=== PATIENT | female | born 1985 | race Caucasian/White ===

== ENCOUNTER 2016-05-12 13:14 | Emergency (ER) | payer OTHER ==
--- NOTE | 2016-05-12 20:44 | ED CLINICAL REPORT ---
Clinical Report - Physicians/Mid Levels [facility] [address] [place] [address] 05/12/2016 13:16 Patient: JUSTIN CALLAWAY Time Seen: 13:58. Arrived- By private vehicle. Historian- patient and family. HISTORY OF PRESENT ILLNESS Chief Complaint: DELUSIONAL, PARANOID and AUDITORY and VISUAL HALLUCINATIONS. This started about 3 years ago, but worse in recent months. The patient has experienced situational problems (Pt lives with her parents. She just lost her job after 9 years of employment there. Pt states she believes she contracted this issue from work.). She is non-compliant with medication (Pt was supposed to start meds after being evaluated 3 years ago, at which time mom advocated against inpatient treatment because mom was unemployed and did not have transportation; however, pt would not take the meds.). No recent drug use or alcohol consumption. Has been depressed and paranoid but eating and exhibited unusual behavior. Has not been sleeping. She has had anxiety, delusions and hallucinations. No anger, suicidal thoughts or self-injury inflicted. The symptoms are described as moderate. No injury is present. Similar symptoms previously: Recent medical care: Not recently seen/assessed. REVIEW OF SYSTEMS No headache, dizziness, weakness, chest pain or palpitations. No abdominal pain, vomiting, diarrhea, black stools or numbness. No fever, sore throat, cough, difficulty breathing or urinary frequency. No skin rash, enlarged lymph nodes, joint pain, weight loss or laceration. All systems otherwise negative, except as recorded above. PAST HISTORY Problems: Depression. Additional Surgeries: no known surgeries. Medications: None. Allergies: None. SOCIAL HISTORY Never smoker. No alcohol use or drug use. ADDITIONAL NOTES The nursing notes have been reviewed. PHYSICAL EXAM Vital Signs: 05/12/2016 13:38 BP: 155/104. HR: 89. RR: 20. O2 saturation: 100%. Pain level now: 0/10. Have been reviewed. Appearance: Alert. No acute distress. Is disheveled. (PT has a look of consternation, but is not overtly anxious.). Eyes: Pupils equal, round and reactive to light. Neck: Normal inspection. Neck supple. CVS: Normal heart rate and rhythm. Heart sounds normal. Respiratory: Breath sounds normal. Chest nontender. Abdomen: Soft and nontender. Back: No tenderness. Skin: Skin warm and dry. Normal skin color. Normal skin turgor. Extremities: Extremities exhibit normal ROM. No lower extremity edema. Psych / Neuro: Blunted affect. Speech normal. Appears to have auditory and visual hallucinations and delusions. The patient expresses phobias (PT states she sees part of her family on one thigh, and part on the other. If she eats certain foods, it will kill one side of the family, and if she eats other foods, it will kill the other. Pt states, "I don't know what I can eat, and I don't know what to do."). She does not appear to understand hers illness but appears concerned about hers current condition. Cranial nerves normal (as tested). No cerebellar findings. No motor deficit. No sensory deficit. LABS, X-RAYS, AND EKG Laboratory Tests: CBC w Diff: (RODRÍGUEZ: 05/12/2016 13:40) ( Transceptacvd 05/12/2016 14:14) Final results Test Result Flag Units (Reference) WHITE BLOOD COUNT 7.9 K/uL (4.5-11.5) RED BLOOD COUNT 4.02 M/uL (4.00-5.20) HEMOGLOBIN 12.0 gm/dL (12.0-16.0) HEMATOCRIT 35.8 L % (36.0-46.0) MEAN CELL VOLUME 89 fL (80-100) MEAN CORPUSCULAR HGB 30 pg (26-34) MEAN CORPUSCULAR HGB CONC 34 g/dL (31-37) RED CELL DISTRIBUTION WIDTH 13.2 % (11.6-14.8) PLATELET COUNT 352 K/uL (150-400) NEUTROPHIL % 73.7 % (50-75) LYMPH % 20.2 L % (25-40) MONO % 5.4 % (3-14) EOSINOPHIL % 0.2 % (0-4) BASOPHIL % 0.5 % (0-2) Urine Drug Screen: (RODRÍGUEZ: 05/12/2016 13:30) ( Mscvd 05/12/2016 14:19) Final results Test Result Flag Units (Reference) AMPHETAMINE/METHAMPHETAMINE NEGATIVE (NEGATIVE) BARBITURATE NEGATIVE (NEGATIVE) BENZODIAZEPINE NEGATIVE (NEGATIVE) CANNABINOID NEGATIVE (NEGATIVE) COCAINE NEGATIVE (NEGATIVE) ECSTASY NEGATIVE (NEGATIVE) METHADONE NEGATIVE (NEGATIVE) OPIATE NEGATIVE (NEGATIVE) The urine drug screen is a qualitative screening test fordrug overdose and abuse. All screen results should beconsidered as presumptive.Drugs screened for are as follows:BenzodiazepinesCocaineAmphetamines/MetamphetaminesTHC (Tetrahydrocannabinol)OpiatesBarbituratesEcstasyMethadonePositive results are unconfirmed. For confirmation, notifythe lab for the specimen to be sent to the reference lab.All confirmations must be performed by a differentmethodology.The ingestion of natural herbal and plant productscontaining Ephedra/Ephedra metabolites can produce in urineone or more substances capable of cross reacting withamphetamine/methamphetamine immunoassays. These testsprovide a preliminary result only. A more specificalternative chemical method must be used to obtain aconfirmed analytical result. CMP: (RODRÍGUEZ: 05/12/2016 13:40) ( MsgRcvd 05/12/2016 14:35) Final results Test Result Flag Units (Reference) GLUCOSE 96 mg/dL (70-110) BUN 11 mg/dL (7-18) CREATININE 0.7 mg/dL (0.6-1.3) Estimated GFR >60 mL/min Estimated GFR- >60 mL/min Note: Persistent reduction over 3 months in eGFR<60 mL/min/1.73 m2 defines CKD. Patients with eGFR values>=60 mL/min/1.73 m2 may also have CKD if evidence ofpersistent proteinuria. Additional information may be foundat www.kidney.org. SODIUM 138 mmol/L (136-145) POTASSIUM 3.5 mmol/L (3.5-5.1) CHLORIDE 103 mmol/L (98-107) CARBON DIOXIDE 24 mmol/L (21-32) CALCIUM 9.1 mg/dL (8.5-10.1) TOTAL PROTEIN 8.2 g/dL (6.4-8.2) ALBUMIN 4.4 g/dL (3.3-5.0) BILIRUBIN, TOTAL 0.5 mg/dL (0.0-1.0) ALKALINE PHOSPHATASE 69 U/L (46-116) AST (SGOT) 20 U/L (15-37) ALT (SGPT) 26 U/L (12-78) ETHYL ALCOHOL <3 L mg/dL (3-10) THYROID STIMULATING HORMONE 1.441 uIU/mL (0.34-3.74) . Pulse Oximetry: 05/12/2016 13:38 O2 saturation: 100%. (FIO2 - room air). Interpretation: normal. PROGRESS AND PROCEDURES Course of Care: Pt was worked up and evaluated by the mental health clinician. She was quite disabled, and it was felt that she should be treated as an inpatient. [place] did accept the pt in transfer. Patient and family counseled in person regarding the patient's serious condition, test results, diagnosis and need for transfer. Parental concerns were addressed. Old medical records reviewed. Disposition: Transferred to [facility]. Condition: stable and serious. CLINICAL IMPRESSION Chronic paranoid psychosis with delusions, hallucinations and paranoia, (with acute exacerbation). (Electronically signed by Antonia Worley MD 05/20/2016 5:51)
--- NOTE | 2016-05-12 20:44 | ED ORDER SUMMARY ---
..... Patient: JUSTIN CALLAWAY OrderSheet [facility] VisitID: [id number] [address] [place] [address] 30y, F Registration Date/Time: 05/12/2016 ORDER SHEET Weight: 68.0 kg (estimated) Allergies: None GENERAL ORDERS: Urine Drug Screen Urgent (13:58 05/12/2016 Tanvi ZIMMERMAN) (Ack 14:06 LNations ER Tech1) (14:07 LNations ER Tech1) Ethyl Alcohol Urgent (13:58 05/12/2016 Tanvi ZIMMERMAN) (Ack 14:06 LNations ER Tech1) (14:07 LNations ER Tech1) CBC w Diff Urgent (13:58 05/12/2016 Tanvi ZIMMERMAN) (Ack 14:06 LNations ER Tech1) (14:07 LNations ER Tech1) CMP Urgent (13:58 05/12/2016 Tanvi ZIMMERMAN) (Ack 14:06 LNations ER Tech1) (14:07 LNations ER Tech1) TSH Urgent (13:58 05/12/2016 Tanvi ZIMMERMAN) (Ack 14:06 LNations ER Tech1) (14:07 LNations ER Tech1) MEDICATION ORDERS: ZyPREXA Zydis ODT PO 5 mg (NOW) (19:20 05/12/2016 Tanvi ZIMMERMAN) (19:32 DBeyer R.N.) Ibuprofen PO 800 mg (NOW) (19:32 05/12/2016 Tanvi ZIMMERMAN) (Ack 20:09 MWinterer R.N.) (Cancelled: Patient Mdlpgyd70:06 MWinterer R.N.) Acetaminophen PO 650 mg (NOW) (19:32 05/12/2016 Tanvi ZIMMERMAN) (Ack 20:09 MWinterer R.N.) (Cancelled: Patient Wycdzfl08:07 MWinterer R.N.) IV FLUIDS: ORDER SHEET NOTES: [Electronically signed by Yahaira Menendez R.N. (17:47 05/19/2016)] [Electronically signed by Antonia Worley MD (05:51 05/20/2016)] [Electronically locked/signed by Yahaira Menendez R.N. (17:47 05/19/2016)]
--- NOTE | 2016-05-12 20:44 | ED ORDER SUMMARY ---
..... Patient: JUSTIN CALLAWAY OrderSheet [facility] VisitID: [id number] [address] [place] [address] 30y, F Registration Date/Time: 05/12/2016 ORDER SHEET Weight: 68.0 kg (estimated) Allergies: None GENERAL ORDERS: Urine Drug Screen Urgent (13:58 05/12/2016 Tanvi ZIMMERMAN) (Ack 14:06 LNations ER Tech1) (14:07 LNations ER Tech1) Ethyl Alcohol Urgent (13:58 05/12/2016 Tanvi ZIMMERMAN) (Ack 14:06 LNations ER Tech1) (14:07 LNations ER Tech1) CBC w Diff Urgent (13:58 05/12/2016 Tanvi ZIMMERMAN) (Ack 14:06 LNations ER Tech1) (14:07 LNations ER Tech1) CMP Urgent (13:58 05/12/2016 Tanvi ZIMMERMAN) (Ack 14:06 LNations ER Tech1) (14:07 LNations ER Tech1) TSH Urgent (13:58 05/12/2016 Tanvi ZIMMERMAN) (Ack 14:06 LNations ER Tech1) (14:07 LNations ER Tech1) MEDICATION ORDERS: ZyPREXA Zydis ODT PO 5 mg (NOW) (19:20 05/12/2016 Tanvi ZIMMERMAN) (19:32 DBeyer R.N.) Ibuprofen PO 800 mg (NOW) (19:32 05/12/2016 Tanvi ZIMMERMAN) (Ack 20:09 MWinterer R.N.) (Cancelled: Patient Uqnkjus18:06 MWinterer R.N.) Acetaminophen PO 650 mg (NOW) (19:32 05/12/2016 Tanvi ZIMMERMAN) (Ack 20:09 MWinterer R.N.) (Cancelled: Patient Avyqnvr71:07 MWinterer R.N.) IV FLUIDS: ORDER SHEET NOTES: [Electronically signed by Yahaira Menendez R.N. (17:47 05/19/2016)] [Electronically signed by Antonia Worley MD (05:51 05/20/2016)] [Electronically locked/signed by Yahaira Menendez R.N. (17:47 05/19/2016)]
--- NOTE | 2016-05-12 20:44 | ED NURSING NOTES ---
Clinical Report - Nurses [facility] [place] [address] [place] [address] 05/12/2016 13:16 Patient: JUSTIN CALLAWAY TRIAGE Acuity: LEVEL 3. Chief Complaint: HALLUCINATIONS and BIZARRE BEHAVIOR and CONFUSED. Alert. SEPSIS SCREEN: Sepsis Screen. Negative (no infection suspected/documented). XAVIER COMA SCORE: Xavier Coma Scale: 14- eyes open spontaneously (4); best verbal response- disoriented (4); best motor response- obeys commands (6). --13:53 Yahaira Menendez R.N. 13:38 05/12/16. BP: 155/104. HR: 89. RR: 20. O2 saturation: 100% on room air. Pain level now: 0/10. --13:53 Yahaira Menendez R.N. Weight: 68 kg estimated. Height/Length: 70 inches Per Patient. BMI: 21.5. --13:47 Yahaira Menendez R.N. Medications None. --13:44 Yahaira Menendez R.N. Medication/allergy information source: the patient's family. --13:53 Yahaira Menendez R.N. Allergies None. --13:45 Yahaira Menendez R.N. History Arrived by private vehicle. Historian: patient. Accompanied by mother. Primary physician (Yosef). ( Pt's mother reports pt has been acting strangely since the end of March. Pt's mother reports pt was fired from her job of 9 years due to hallucinations. Pt's mother reports pt has a history of depression, but no other mental illness. Pt's mother reports pt does not take any medications at this time, but has a rx for lorazapam.). 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 PAST MEDICAL HX: Last normal menstrual period unknown. SOCIAL HX: Never smoker. Occasional alcohol use. No drug use. SELF HARM ASSESSMENT: A self harm assessment was performed. The patient answered "no" to the question "Have you recently felt down, depressed, or hopeless?", "Do you have thoughts of harming or killing yourself?", "Are you here because you tried to hurt yourself?", "Have you recently had thoughts about harming or killing others?" and "Do you have any dangerous items in your possession?". Unable to assess the patient in regard to the question "Have you noticed less interest or pleasure in doing things?". The patient reports their behavior and family reported the patient's behavior. FALL RISK ASSESSMENT: Fall risk assessment completed. No fall risk identified. NUTRITIONAL RISK ASSESSMENT: The nutritional risk assessment revealed no deficiencies. FUNCTIONAL ASSESSMENT: Functional assessment: no impairments noted. LEARNING NEEDS ASSESSMENT: The learning needs assessment revealed no barriers. SKIN INTEGRITY ASSESSMENT: Skin integrity risk assessment completed. No skin integrity risk identified. --13:53 Yahaira Menendez R.N. PROBLEMS: Depression. --13:46 Yahaira Menendez R.N. Assessment GENERAL / NEURO / PSYCH: Alert. Appears in no acute distress. Patient appears calm and cooperative. RESPIRATORY: Respirations not labored. CVS: Capillary refill less than 2 seconds. GI / : Abdomen soft and nontender. SKIN: Mucous membranes are pink. Skin is warm and dry. --13:53 Yahaira Menendez R.N. Interventions ID band on patient. To treatment room. --13:53 Yahaira Menendez R.N. PHYSICAL ASSESSMENT 13:55 05/12/16. Ambulatory to room. GENERAL / NEURO / PSYCH: Alert. Appears in no acute distress. She has no smile response. Speech within normal limits. Patient appears calm and cooperative. Good eye contact. Patient appears well-nourished and neat and clean. RESPIRATORY: Respirations not labored. CVS: Capillary refill less than 2 seconds. GI / : Abdomen soft. SKIN: Skin intact. Skin is warm and dry. Skin color is within normal limits. --13:55 Yahaira Menendez R.N. NURSING PROGRESS NOTES 13:54 05/12/16. Patient gowned. Suicide precautions initiated. Room made safe. Clothing / valuables removed and placed in the safe. Two patient identifiers checked. Bed placed in lowest position. Brakes of bed on. Patient ready for evaluation- chart flagged and ED physician notified. --13:54 Yahaira Menendez R.N. Patient ID band checked for patient name and birthdate: patient confirmed. Blood samples drawn from the right antecubital space with 23g butterfly by tech per protocol ; labeled in presence of the patient and sent to lab: rainbow set and red, green, purple and blue top. --13:59 Alayna Burnett ER Tech1 Patient ID band checked for patient name and birthdate: patient confirmed. Instructions provided to collect clean catch urine and patient verbalized understanding. Clean catch urine collected with return of yellow-colored urine; sample sent to lab for urinalysis and culture. Specimen labeled in the presence of the patient. --13:59 Alayna Burnett ER Tech1 ( Belongings taken to locker 1.). --14:05 Alayna Burnett ER Tech1 15:08 05/12/16. ( Pt given sandwich and ice water.). --15:08 Yahaira Menendez R.N. 16:02 05/12/16. The patient is calm and resting quietly. Visitor at bedside (mother). --16:02 Yahaira Menendez R.N. ( [facility] PAT Team paged for assessment.). --16:46 Zenaida Caldwell ( pt. given jello and cheese.). --17:40 Alayna Burnett ER Tech1 18:19 05/12/16. BP: 143/94. HR: 100. RR: 20. O2 saturation: 100% on room air. Pain level now: 0/10. --18:20 Yahaira Menendez R.N. 18:20 05/12/16. The patient reports no complaints. ( Pt's mother at bedside with a sandwich for pt. Pt given water.). --18:20 Yahaira Menendez R.N. 18:34 05/12/16. ( Isabell with [place] PAT team here.). --18:34 Yahaira Menendez R.N. ( Pt speaking with latex foam worker). --19:10 Hieu Chaudhry R.N. 19:32 05/12/2016 ZYPREXA ZYDIS ODT (OLANZapine) PO 5 mg given. Allergies verified, confirmed 5 rights and sedative warning given. --19:32 Hieu Chaudhry R.N. ( Pt given a sandwich and cheese stick). --19:33 Hieu Chaudhry R.N. 21:39 05/12/16. BP: 155/99. HR: 83. RR: 16. O2 saturation: 100% on room air. Pain level now: 0/10. --21:39 Yahaira Menendez R.N. 21:39 05/12/16. The patient reports no complaints and she is calm and resting quietly. ( Pt ambulated to with mother.). --21:39 Yahaira Menendez R.N. 23:06 05/12/16. ( All pt belongings given to pt's parents. Parents state they are taking her belongings home with them.). --23:06 Yahaira Menendez R.N. DISPOSITION / DISCHARGE Transferred to [facility]. Transported via ambulance by EMS and transport team. Bed obtained. Patient has no belongings. --23:16 Yahaira Menendez R.N. 23:15 05/12/16. BP: 135/86. HR: 77. RR: 12. O2 saturation: 100% on room air. Temp: 98.5 F (oral). --23:16 Yahaira Menendez R.N. Locked/Released at 05/19/2016 17:47 by Yahaira Menendez R.N.
--- NOTE | 2016-05-12 20:44 | ED NURSING NOTES ---
Clinical Report - Nurses [facility] [place] [address] [address] 05/12/2016 13:16 Patient: JUSTIN CALLAWAY TRIAGE Acuity: LEVEL 3. Chief Complaint: HALLUCINATIONS and BIZARRE BEHAVIOR and CONFUSED. Alert. SEPSIS SCREEN: Sepsis Screen. Negative (no infection suspected/documented). XAVIER COMA SCORE: Xavier Coma Scale: 14- eyes open spontaneously (4); best verbal response- disoriented (4); best motor response- obeys commands (6). --13:53 Yahaira Menendez R.N. 13:38 05/12/16. BP: 155/104. HR: 89. RR: 20. O2 saturation: 100% on room air. Pain level now: 0/10. --13:53 Yahaira Menendez R.N. Weight: 68 kg estimated. Height/Length: 70 inches Per Patient. BMI: 21.5. --13:47 Yahaira Menendez R.N. Medications None. --13:44 Yahaira Menendez R.N. Medication/allergy information source: the patient's family. --13:53 Yahaira Menendez R.N. Allergies None. --13:45 Yahaira eMnendez R.N. History Arrived by private vehicle. Historian: patient. Accompanied by mother. Primary physician (Yosef). ( Pt's mother reports pt has been acting strangely since the end of March. Pt's mother reports pt was fired from her job of 9 years due to hallucinations. Pt's mother reports pt has a history of depression, but no other mental illness. Pt's mother reports pt does not take any medications at this time, but has a rx for lorazapam.). 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 PAST MEDICAL HX: Last normal menstrual period unknown. SOCIAL HX: Never smoker. Occasional alcohol use. No drug use. SELF HARM ASSESSMENT: A self harm assessment was performed. The patient answered "no" to the question "Have you recently felt down, depressed, or hopeless?", "Do you have thoughts of harming or killing yourself?", "Are you here because you tried to hurt yourself?", "Have you recently had thoughts about harming or killing others?" and "Do you have any dangerous items in your possession?". Unable to assess the patient in regard to the question "Have you noticed less interest or pleasure in doing things?". The patient reports their behavior and family reported the patient's behavior. FALL RISK ASSESSMENT: Fall risk assessment completed. No fall risk identified. NUTRITIONAL RISK ASSESSMENT: The nutritional risk assessment revealed no deficiencies. FUNCTIONAL ASSESSMENT: Functional assessment: no impairments noted. LEARNING NEEDS ASSESSMENT: The learning needs assessment revealed no barriers. SKIN INTEGRITY ASSESSMENT: Skin integrity risk assessment completed. No skin integrity risk identified. --13:53 Yahaira Menendez R.N. PROBLEMS: Depression. --13:46 Yahaira Menendez R.N. Assessment GENERAL / NEURO / PSYCH: Alert. Appears in no acute distress. Patient appears calm and cooperative. RESPIRATORY: Respirations not labored. CVS: Capillary refill less than 2 seconds. GI / : Abdomen soft and nontender. SKIN: Mucous membranes are pink. Skin is warm and dry. --13:53 Yahaira Menendez R.N. Interventions ID band on patient. To treatment room. --13:53 Yahaira Menendez R.N. PHYSICAL ASSESSMENT 13:55 05/12/16. Ambulatory to room. GENERAL / NEURO / PSYCH: Alert. Appears in no acute distress. She has no smile response. Speech within normal limits. Patient appears calm and cooperative. Good eye contact. Patient appears well-nourished and neat and clean. RESPIRATORY: Respirations not labored. CVS: Capillary refill less than 2 seconds. GI / : Abdomen soft. SKIN: Skin intact. Skin is warm and dry. Skin color is within normal limits. --13:55 Yahaira Menendez R.N. NURSING PROGRESS NOTES 13:54 05/12/16. Patient gowned. Suicide precautions initiated. Room made safe. Clothing / valuables removed and placed in the safe. Two patient identifiers checked. Bed placed in lowest position. Brakes of bed on. Patient ready for evaluation- chart flagged and ED physician notified. --13:54 Yahaira Menendez R.N. Patient ID band checked for patient name and birthdate: patient confirmed. Blood samples drawn from the right antecubital space with 23g butterfly by tech per protocol ; labeled in presence of the patient and sent to lab: rainbow set and red, green, purple and blue top. --13:59 Alayna Burnett ER Tech1 Patient ID band checked for patient name and birthdate: patient confirmed. Instructions provided to collect clean catch urine and patient verbalized understanding. Clean catch urine collected with return of yellow-colored urine; sample sent to lab for urinalysis and culture. Specimen labeled in the presence of the patient. --13:59 Alayna Burnett ER Tech1 ( Belongings taken to locker 1.). --14:05 Alayna Burnett ER Tech1 15:08 05/12/16. ( Pt given sandwich and ice water.). --15:08 Yahaira Menendez R.N. 16:02 05/12/16. The patient is calm and resting quietly. Visitor at bedside (mother). --16:02 Yahaira Menendez R.N. ( Counts include 234 beds at the [facility] PAT Team paged for assessment.). --16:46 Zenaida Caldwell ( pt. given jello and cheese.). --17:40 Alayna Burnett ER Tech1 18:19 05/12/16. BP: 143/94. HR: 100. RR: 20. O2 saturation: 100% on room air. Pain level now: 0/10. --18:20 Yahaira Menendez R.N. 18:20 05/12/16. The patient reports no complaints. ( Pt's mother at bedside with a sandwich for pt. Pt given water.). --18:20 Yahaira Menendez R.N. 18:34 05/12/16. ( Isabell with [facility] PAT team here.). --18:34 Yahaira Menendez R.N. ( Pt speaking with chemical tank worker). --19:10 Hieu Chaudhry R.N. 19:32 05/12/2016 ZYPREXA ZYDIS ODT (OLANZapine) PO 5 mg given. Allergies verified, confirmed 5 rights and sedative warning given. --19:32 Hieu Chaudhry R.N. ( Pt given a sandwich and cheese stick). --19:33 Hieu Chaudhry R.N. 21:39 05/12/16. BP: 155/99. HR: 83. RR: 16. O2 saturation: 100% on room air. Pain level now: 0/10. --21:39 Yahaira Menendez R.N. 21:39 05/12/16. The patient reports no complaints and she is calm and resting quietly. ( Pt ambulated to with mother.). --21:39 Yahaira Menendez R.N. 23:06 05/12/16. ( All pt belongings given to pt's parents. Parents state they are taking her belongings home with them.). --23:06 Yahaira Menendez R.N. DISPOSITION / DISCHARGE Transferred to [facility]. Transported via ambulance by EMS and transport team. Bed obtained. Patient has no belongings. --23:16 Yahaira Menendez R.N. 23:15 05/12/16. BP: 135/86. HR: 77. RR: 12. O2 saturation: 100% on room air. Temp: 98.5 F (oral). --23:16 Yahaira Menendez R.N. Locked/Released at 05/19/2016 17:47 by Yahaira Menendez R.N.
--- NOTE | 2016-05-20 05:51 | ED MED RECONCILIATION SUMMARY ---
Patient: JUSTIN CALLAWAY Medication Reconciliation Report [facility] VisitID: [id number] [address] [place] [address] 30y, F Registration Date/Time: 05/12/2016 Weight: 68.0 kg Height/Length: 70 in. BMI: 21.5 ALLERGIES: None The patient's Home Medications are listed below: NONE. The source(s) of the original Home Medication information: patient's family member The following Medications were given to the patient in the Emergency Department: ZYPREXA ZYDIS ODT [PO] PO 5 mg, administered: 05/12/2016 7:32:00 PM The following Medications were prescribed to the patient: None.
--- NOTE | 2016-05-20 05:51 | ED MED RECONCILIATION SUMMARY ---
Patient: JUSTIN CALLAWAY Medication Reconciliation Report [facility] VisitID: [id number] [address] [place] [address] 30y, F Registration Date/Time: 05/12/2016 Weight: 68.0 kg Height/Length: 70 in. BMI: 21.5 ALLERGIES: None The patient's Home Medications are listed below: NONE. The source(s) of the original Home Medication information: patient's family member The following Medications were given to the patient in the Emergency Department: ZYPREXA ZYDIS ODT [PO] PO 5 mg, administered: 05/12/2016 7:32:00 PM The following Medications were prescribed to the patient: None.
--- NOTE | 2016-05-20 05:51 | ED MAR SUMMARY ---
..... Medication Administration Record [facility] [address] [place] [address] Patient: JUSTIN CALLAWAY Visit ID: [id number] 30y, F Weight: 68.0 kg Height/Length: 70 in BMI: 21.5 ALLERGIES: None Given 19:32 05/12/2016 Hieu Chaudhry R.N. Medication Administered: ZYPREXA ZYDIS ODT [PO] (OLANZAPINE), Dose: 5 mg PO. Medication Ordered: ZyPREXA Zydis ODT PO 5 mg (NOW).
--- NOTE | 2016-05-20 05:51 | ED DISCHARGE INSTRUCTIONS ---
Patient: JUSTIN CALLAWAY General Instructions [facility] VisitID: [id number] [address] [place] [address] 30y, F Registration Date/Time: 05/12/2016 Chronic paranoid psychosis with delusions, hallucinations and paranoia, (with acute exacerbation). (Electronically signed by Antonia Worley MD 05/20/2016 5:51)
--- NOTE | 2016-05-20 05:51 | ED DISCHARGE INSTRUCTIONS ---
Patient: JUSTIN CALLAWAY General Instructions [facility] VisitID: [id number] [address] [place] [address] 30y, F Registration Date/Time: 05/12/2016 Chronic paranoid psychosis with delusions, hallucinations and paranoia, (with acute exacerbation). (Electronically signed by Antonia Worley MD 05/20/2016 5:51)
--- NOTE | 2016-05-20 05:51 | ED MAR SUMMARY ---
..... Medication Administration Record [facility] [address] [place] [address] Patient: JUSTIN CALLAWAY Visit ID: [id number] 30y, F Weight: 68.0 kg Height/Length: 70 in BMI: 21.5 ALLERGIES: None Given 19:32 05/12/2016 Hieu Chaudhry R.N. Medication Administered: ZYPREXA ZYDIS ODT [PO] (OLANZAPINE), Dose: 5 mg PO. Medication Ordered: ZyPREXA Zydis ODT PO 5 mg (NOW).
== END 2016-05-12 23:15 ==
LOC: ED SRH 13:14
DX: F22 Delusional disorders (principal); R44.3 Hallucinations, unspecified
CPT/HCPCS: 90100; 92010; 92760; 92761; 92762; 92763; 92764; 92765; 92766; 92767; 93140; 95059

== ENCOUNTER 2016-06-14 14:02 | Emergency (ER) | payer OTHER ==
--- NOTE | 2016-06-15 06:09 | ED NURSING NOTES ---
Clinical Report - Nurses [place] [address] [place] [address] 06/14/2016 14:03 [id number] Triage time 14:Jun 14 2016. Acuity: LEVEL 4. Chief Complaint: DEPRESSION, ANXIETY, HALLUCINATIONS, DELUSIONS and BIZARRE BEHAVIOR. XAVIER COMA SCORE: Xavier Coma Scale: 14- eyes open spontaneously (4); best verbal response- disoriented (4); best motor response- obeys commands (6). --14:32 Lara Ndiaye R.N. 14:26 06/14/16. BP: 131/87. HR: 85. RR: 18. O2 saturation: 99%. Temp: 98.5 F. --14:32 Lara Ndiaye R.N. Weight: 65.7 kg stated. Height/Length: 69 inches Per Patient. BMI: 21.4. --14:32 Lara Ndiaye R.N. Medications OLANZapine Oral. --14:29 Lara Ndiaye R.N. Citalopram Hydrobromide Oral. --14:29 Lara Ndiaye R.N. HydrOXYzine Pamoate Oral. --14:30 Lara Ndiaye R.N. TraZODone HCl Oral. --14:30 Lara Ndiaye R.N. Allergies None. --14:29 Lara Ndiaye R.N. History Arrived by private vehicle. Historian: patient. Accompanied by family. Primary physician ([facility]). Onset. (2 weeks ago was released). She has had anxiety and sleeping difficulties, describes feelings of depression and has been confused. Has been feeling agitated. Admits to having hallucinations. PAST MEDICAL HX: Anxiety. Psychiatric illness. SELF HARM ASSESSMENT: A self harm assessment was performed. The patient answered "no" to the question "Have you recently felt down, depressed, or hopeless?" and "Do you have thoughts of harming or killing yourself?". FALL RISK ASSESSMENT: Fall risk assessment completed. No fall risk identified. NUTRITIONAL RISK ASSESSMENT: The nutritional risk assessment revealed no deficiencies. FUNCTIONAL ASSESSMENT: Functional assessment: no impairments noted. LEARNING NEEDS ASSESSMENT: The learning needs assessment revealed no barriers. ABUSE ASSESSMENT: Abuse assessment: (no becasue of voices). SKIN INTEGRITY ASSESSMENT: Skin integrity risk assessment completed. No skin integrity risk identified. --14:32 Lara Ndiaye R.N. PROBLEMS: Psychosis. Depression. --14:30 Lara Ndiaye R.N. ADDITIONAL SURGERIES: no known surgeries. Interventions ID band on patient. --14:32 Lara Ndiaye R.N. PHYSICAL ASSESSMENT Ambulatory to room. ( Patient states seeing werewolves and constantly hearing voices which are telling her many things including yelling at her. Patient states "Don't let them hurt Peter!" Mom states Peter isn't here. Patient states Peter is her medication and her voices are yelling that we are going to hurt him.). GENERAL / NEURO / PSYCH: Appears anxious. The patient is disoriented to place. Patient's mood/affect appears flat. Poor eye contact. Behavior appears abnormal, including paranoid behaviors and having apparent auditory and visual hallucinations. Patient appears unkempt. Poor hygiene. (parents made patient shower and pt showered with her bra and underware on.). RESPIRATORY: Respirations not labored. Breath sounds within normal limits. CVS: Normal heart rate and rhythm. Capillary refill less than 2 seconds. GI / : Abdomen soft and nontender. Bowel sounds within normal limits. SKIN: Skin is warm and dry. --14:55 Lara Ndiaye R.N. ( Patient denies wanting to hurt herself or others.). --14:55 Lara Ndiaye R.N. NURSING PROGRESS NOTES Pulse oximeter and NIBP monitor placed on patient. Reassurance given. Call light placed in reach. Side rails up x 1. Bed placed in lowest position. Brakes of bed on. --14:56 Lara Ndiaye R.N. ( Hourly rounds completed on patient currently states feels the same no needs.). --17:51 Lara Ndiaye R.N. ( Patient not very hungry for her dinner since she had a sandwich brought to her by her family which she ate.). --18:36 Lara Ndiaye R.N. 19:06 06/14/16. Care transferred and report received (from Lara RN). --19:06 Annabel Mcarthur R.N. 19:57 06/14/16. ( Patients mother has returned and is staying bedside until PAT arrival. Patient voices no complaints.). --19:57 Annabel Mcarthur R.N. ( Patient given PO fluids, lights dimmed). --20:15 Tiffanie Bustamante 20:14 06/14/16. BP: 128/91. HR: 90. RR: 20. O2 saturation: 98% on room air. Pain level now: 0/10. --20:15 Tiffanie Bustamante 20:49 06/14/16. ( family at bedside). GENERAL / NEURO / PSYCH: Alert. Oriented X 4. Patient appears calm and cooperative. Affect appears normal. RESPIRATORY: No respiratory distress. SKIN: Skin is warm and dry. --20:49 Annabel Mcarthur R.N. 22:22 Patient ambulatory to courtesy phone at nurses station. --22:22 McQuoid, Jaye, ER Tech1 ( Justin request to be moved to another room because the voices in her current room are bothering her. Offered Justin Room 14, she reports she feels safe. Gave Justin warm blankets. She is resting comfortably at this time.). --22:42 Cherie Russell R.N. 23:57 06/14/16. The patient is calm and resting quietly. ( ETE of PAT 1 hr). --23:57 Annabel Mcarthur R.N. 01:37 06/15/16. The patient is sleeping. ( New ETE for PAT 0330. Family in waiting room.). --01:37 Annabel Mcarthur R.N. The patient is sleeping. --03:04 Sunil Malone R.N. 03:44 06/15/16. ( Aron, from [facility] PAT here to evaluate patient.). --03:44 Annabel Mcarthur R.N. 04:35 06/15/16. ( Patient anxious, pacing, covering her ears, states the voices are louder again. Pt moved to room 7, mother is in room with patient. She will inform staff if she has to leave for any reason.). --04:35 Annabel Mcarthur R.N. ( Patient now resting in bed with eyes closed.). --04:50 Annabel Mcarthur R.N. 06:02 06/15/16. ( To be transferred to [facility] via EMS transport between 8a and 9a.). --06:02 Annabel Mcarthur R.N. 06:02 06/15/16. BP: 124/74. HR: 76. RR: 16. O2 saturation: 100%. Temp: 97.6 F. Pain level now 0/10. --06:02 Annabel Mcarthur R.N. Authorization for transfer signed by patients mother, original in transfer envelope, copy to ED chart. --06:19 Ming, Jaye, ER Tech1 07:01 06/15/16. Care transferred and report given (to BJ Jones). --07:01 Annabel Mcarthur R.N. 07:17 06/15/16. Care transferred and report received (BJ Jin). --07:17 Karen Thakur R.N. Care transferred and report received (from Tiffanie Morocho RN). --07:35 Flores Hathaway R.N. 07:48 06/15/16. ( Offered patient and mother some fluids or food, they accepted coffee and water.). --07:48 Karen Thakur R.N. 07:52 06/15/16. ( Patient up, pacing around in room and hallway at times. Mother is in patients room. Transfer is scheduled for 0800 tow picker). --07:52 Karen Thakur R.N. DISPOSITION / DISCHARGE 08:03 06/15/16. Departure time: :Jun 15 2016. Condition at departure: unchanged. Transferred to [facility]. Summary of care provided to EMS via paper (Jun 15 2016). ( Patient and mother has no further questions. Patient is being transferred to [facility] by ambulance). --08:03 Karen Thakur R.N. 08:00 06/15/16. BP: 139/86 (regular adult cuff) taken on the right arm, while sitting. HR: 87. RR: 16 (regular). O2 saturation: 100% on room air. Temp: 98.5 F (oral). Pain level now: 0/10. --08:03 Karen Thakur R.N. 08:10 06/15/16. ( Report given to Kaylynn at [facility].). --08:10 Karen Thakur R.N. Locked/Released at 06/15/2016 8:11 by Karen Thakur R.N.
--- NOTE | 2016-06-15 06:09 | ED NURSING NOTES ---
Clinical Report - Nurses [place] [address] [place] [address] 06/14/2016 14:03 [id number] Triage time 14:Jun 14 2016. Acuity: LEVEL 4. Chief Complaint: DEPRESSION, ANXIETY, HALLUCINATIONS, DELUSIONS and BIZARRE BEHAVIOR. XAVIER COMA SCORE: Xavier Coma Scale: 14- eyes open spontaneously (4); best verbal response- disoriented (4); best motor response- obeys commands (6). --14:32 Lara Ndiaye R.N. 14:26 06/14/16. BP: 131/87. HR: 85. RR: 18. O2 saturation: 99%. Temp: 98.5 F. --14:32 Lara Ndiaye R.N. Weight: 65.7 kg stated. Height/Length: 69 inches Per Patient. BMI: 21.4. --14:32 Lara Ndiaye R.N. Medications OLANZapine Oral. --14:29 Lara Ndiaye R.N. Citalopram Hydrobromide Oral. --14:29 Lara Nidaye R.N. HydrOXYzine Pamoate Oral. --14:30 Lara Ndiaye R.N. TraZODone HCl Oral. --14:30 Lara Ndiaye R.N. Allergies None. --14:29 Lara Ndiaye R.N. History Arrived by private vehicle. Historian: patient. Accompanied by family. Primary physician ([facility]). Onset. (2 weeks ago was released). She has had anxiety and sleeping difficulties, describes feelings of depression and has been confused. Has been feeling agitated. Admits to having hallucinations. PAST MEDICAL HX: Anxiety. Psychiatric illness. SELF HARM ASSESSMENT: A self harm assessment was performed. The patient answered "no" to the question "Have you recently felt down, depressed, or hopeless?" and "Do you have thoughts of harming or killing yourself?". FALL RISK ASSESSMENT: Fall risk assessment completed. No fall risk identified. NUTRITIONAL RISK ASSESSMENT: The nutritional risk assessment revealed no deficiencies. FUNCTIONAL ASSESSMENT: Functional assessment: no impairments noted. LEARNING NEEDS ASSESSMENT: The learning needs assessment revealed no barriers. ABUSE ASSESSMENT: Abuse assessment: (no becasue of voices). SKIN INTEGRITY ASSESSMENT: Skin integrity risk assessment completed. No skin integrity risk identified. --14:32 Lara Ndiaye R.N. PROBLEMS: Psychosis. Depression. --14:30 Lara Ndiaye R.N. ADDITIONAL SURGERIES: no known surgeries. Interventions ID band on patient. --14:32 Lara Ndiaye R.N. PHYSICAL ASSESSMENT Ambulatory to room. ( Patient states seeing werewolves and constantly hearing voices which are telling her many things including yelling at her. Patient states "Don't let them hurt Peter!" Mom states Peter isn't here. Patient states Peter is her medication and her voices are yelling that we are going to hurt him.). GENERAL / NEURO / PSYCH: Appears anxious. The patient is disoriented to place. Patient's mood/affect appears flat. Poor eye contact. Behavior appears abnormal, including paranoid behaviors and having apparent auditory and visual hallucinations. Patient appears unkempt. Poor hygiene. (parents made patient shower and pt showered with her bra and underware on.). RESPIRATORY: Respirations not labored. Breath sounds within normal limits. CVS: Normal heart rate and rhythm. Capillary refill less than 2 seconds. GI / : Abdomen soft and nontender. Bowel sounds within normal limits. SKIN: Skin is warm and dry. --14:55 Lara Ndiaye R.N. ( Patient denies wanting to hurt herself or others.). --14:55 Lara Ndiaye R.N. NURSING PROGRESS NOTES Pulse oximeter and NIBP monitor placed on patient. Reassurance given. Call light placed in reach. Side rails up x 1. Bed placed in lowest position. Brakes of bed on. --14:56 Lara Ndiaye R.N. ( Hourly rounds completed on patient currently states feels the same no needs.). --17:51 Lara Ndiaye R.N. ( Patient not very hungry for her dinner since she had a sandwich brought to her by her family which she ate.). --18:36 Lara Ndiaye R.N. 19:06 06/14/16. Care transferred and report received (from Lara RN). --19:06 Annabel Mcarthur R.N. 19:57 06/14/16. ( Patients mother has returned and is staying bedside until PAT arrival. Patient voices no complaints.). --19:57 Annabel Mcarthur R.N. ( Patient given PO fluids, lights dimmed). --20:15 Tiffanie Bustamante 20:14 06/14/16. BP: 128/91. HR: 90. RR: 20. O2 saturation: 98% on room air. Pain level now: 0/10. --20:15 Tiffanie Bustamante 20:49 06/14/16. ( family at bedside). GENERAL / NEURO / PSYCH: Alert. Oriented X 4. Patient appears calm and cooperative. Affect appears normal. RESPIRATORY: No respiratory distress. SKIN: Skin is warm and dry. --20:49 Annabel Mcarthur R.N. 22:22 Patient ambulatory to courtesy phone at nurses station. --22:22 McQuoid, Jaye, ER Tech1 ( Justin request to be moved to another room because the voices in her current room are bothering her. Offered Justin Room 14, she reports she feels safe. Gave Justin warm blankets. She is resting comfortably at this time.). --22:42 Cherie Russell R.N. 23:57 06/14/16. The patient is calm and resting quietly. ( ETE of PAT 1 hr). --23:57 Annabel Mcarthur R.N. 01:37 06/15/16. The patient is sleeping. ( New ETE for PAT 0330. Family in waiting room.). --01:37 Annabel Mcarthur R.N. The patient is sleeping. --03:04 Sunil Malone R.N. 03:44 06/15/16. ( Aron, from [facility] PAT here to evaluate patient.). --03:44 Annabel Mcarthur R.N. 04:35 06/15/16. ( Patient anxious, pacing, covering her ears, states the voices are louder again. Pt moved to room 7, mother is in room with patient. She will inform staff if she has to leave for any reason.). --04:35 Annabel Mcarthur R.N. ( Patient now resting in bed with eyes closed.). --04:50 Annabel Mcarthur R.N. 06:02 06/15/16. ( To be transferred to [facility] via EMS transport between 8a and 9a.). --06:02 Annabel Mcarthur R.N. 06:02 06/15/16. BP: 124/74. HR: 76. RR: 16. O2 saturation: 100%. Temp: 97.6 F. Pain level now 0/10. --06:02 Annabel Mcarthur R.N. Authorization for transfer signed by patients mother, original in transfer envelope, copy to ED chart. --06:19 Ming, Jaye, ER Tech1 07:01 06/15/16. Care transferred and report given (to BJ Jones). --07:01 Annabel Mcarthur R.N. 07:17 06/15/16. Care transferred and report received (BJ Jin). --07:17 Karen Thakur R.N. Care transferred and report received (from Tiffanie Morocho RN). --07:35 Flores Hathaway R.N. 07:48 06/15/16. ( Offered patient and mother some fluids or food, they accepted coffee and water.). --07:48 Karen Thakur R.N. 07:52 06/15/16. ( Patient up, pacing around in room and hallway at times. Mother is in patients room. Transfer is scheduled for 0800 waste picker). --07:52 Karen Thakur R.N. DISPOSITION / DISCHARGE 08:03 06/15/16. Departure time: :Jun 15 2016. Condition at departure: unchanged. Transferred to [facility]. Summary of care provided to EMS via paper (Jun 15 2016). ( Patient and mother has no further questions. Patient is being transferred to [facility] by ambulance). --08:03 Karen Thakur R.N. 08:00 06/15/16. BP: 139/86 (regular adult cuff) taken on the right arm, while sitting. HR: 87. RR: 16 (regular). O2 saturation: 100% on room air. Temp: 98.5 F (oral). Pain level now: 0/10. --08:03 Karen Thakur R.N. 08:10 06/15/16. ( Report given to Kaylynn at [facility].). --08:10 Karen Thakur R.N. Locked/Released at 06/15/2016 8:11 by Karen Thakur R.N.
--- NOTE | 2016-06-15 06:09 | ED ORDER SUMMARY ---
..... Patient: JUSTIN CALLAWAY OrderSheet [facility] VisitID: [id number] [place] [address] 30y, F Registration Date/Time: 06/14/2016 ORDER SHEET Weight: 65.7 kg (stated) Allergies: None GENERAL ORDERS: CBC w Diff Urgent (14:44 06/14/2016 HBivens A.R.N.P.) (Ack 14:48 RKaruga) (20:48 AMcQuoid ER Tech1) CMP Urgent (14:44 06/14/2016 HBivens A.R.N.P.) (Ack 14:48 RKaruga) (20:48 AMcQuoid ER Tech1) UA-Culture if indicated Urgent (14:44 06/14/2016 HBivens A.R.N.P.) (Ack 14:48 RKaruga) (20:48 AMcQuoid ER Tech1) Urine Drug Screen Urgent (14:44 06/14/2016 HBivens A.R.N.P.) (Ack 14:48 RKaruga) (20:48 AMcQuoid ER Tech1) Urine Urgent (14:44 06/14/2016 HBivens A.R.N.P.) (Ack 14:48 RKaruga) (20:48 AMcQuoid ER Tech1) Ethyl Alcohol Urgent (14:44 06/14/2016 HBivens A.R.N.P.) (Ack 14:48 RKaruga) (20:48 AMcQuoid ER Tech1) Acetaminophen Level Urgent (14:44 06/14/2016 HBivens A.R.N.P.) (Ack 14:48 RKaruga) (20:48 AMcQuoid ER Tech1) Salicylate Level Urgent (14:44 06/14/2016 HBivens A.R.N.P.) (Ack 14:48 RKaruga) (20:48 AMcQuoid ER Tech1) MEDICATION ORDERS: IV FLUIDS: ORDER SHEET NOTES: [Electronically signed by Karen Thakur R.N. (08:11 06/15/2016)] [Electronically signed by Mellisa Hurtado A.R.N.P. (13:05 06/20/2016)] [Electronically locked/signed by Karen Thakur R.N. (08:11 06/15/2016)]
--- NOTE | 2016-06-15 06:09 | ED CLINICAL REPORT ---
Clinical Report - Physicians/Mid Levels Formerly [facility] [address] [place] [address] 06/14/2016 14:03 Patient: JUSTIN CALLAWAY Time Seen: 1434; initial patient contact, initial documentation, patient care assumed. Arrived- By private vehicle. Not in custody. Historian- patient and mother. HISTORY OF PRESENT ILLNESS Chief Complaint: ANXIOUS and DEPRESSED and AUDITORY and VISUAL HALLUCINATIONS. This started about 2 weeks ago. No situational problems or recent drug use or alcohol consumption. She has exhibited a behavior change. but was not found wandering. (pt tells me that the voices she hears are telling her scary things). She is non-compliant with medication. Has not been sleeping. She has had anxiety, delusions and hallucinations. Has been depressed. No suicidal thoughts or self-injury inflicted. The symptoms are described as moderate. No injury is present. Similar symptoms previously: ( txed here on 05/12 for same thing, mom says she was admitted to [place], and since she was dc, she is noncompliant with meds). Recent medical care: The patient was seen recently by a health care provider. REVIEW OF SYSTEMS No chest pain, abdominal pain, vomiting, diarrhea or fever. No difficulty breathing. All systems otherwise negative, except as recorded above. PAST HISTORY See nurses notes. ( PROBLEMS: Psychosis. Depression. --14:30 Lara Ndiaye R.N. ADDITIONAL SURGERIES: no known surgeries.). SOCIAL HISTORY Never smoker. No alcohol use or drug use. Has social support. Has place to stay. FAMILY HISTORY Negative. ADDITIONAL NOTES The nursing notes have been reviewed with agreement regarding the chief complaint, HPI, ROS, PMH and patient medications and allergies. PHYSICAL EXAM Vital Signs: 06/14/2016 14:26 BP: 131/87. HR: 85. RR: 18. O2 saturation: 99%. Temp: 98.5 F. Have been reviewed as normal and appear to be correct. Appearance: Alert. No acute distress. Appearance is normal. Patient is. Appears detached. Eyes: Pupils equal, round and reactive to light. Neck: Normal inspection. Neck supple. CVS: Normal heart rate and rhythm. Heart sounds normal. Respiratory: Breath sounds normal. Chest nontender. Abdomen: Soft and nontender. Back: No tenderness. Skin: Skin warm and dry. Normal skin color. Normal skin turgor. Extremities: Extremities exhibit normal ROM. No lower extremity edema. Psych / Neuro: Oriented X 3. Abnormal mood and affect. Flat affect. Speech normal. Cognition normal. Thought content not normal. Thought process not normal. Appears to have auditory and visual hallucinations and delusions. Denies suicidal thoughts. Patient does not express homicidal thoughts. Insight and judgement not normal. The patient does not appear to understand hers illness. She seems unconcerned about hers current condition. Cranial nerves normal (as tested). No cerebellar findings. No motor deficit. No sensory deficit. LABS, X-RAYS, AND EKG Laboratory Tests: UA-Culture if indicated: (RODRÍGUEZ: 06/14/2016 15:45) ( [facility] [place] Final results Test Result Flag Units (Reference) URINE COLOR YELLOW URINE APPEARANCE HAZY URINE GLUCOSE NEGATIVE (NEGATIVE) URINE BILIRUBIN NEGATIVE (NEGATIVE) URINE KETONE TRACE (NEGATIVE) URINE SPECIFIC GRAVITY <= 1.005 L (1.010-1.030) URINE PH 6.0 (5.0-8.0) URINE PROTEIN NEGATIVE (NEGATIVE) URINE UROBILINOGEN 0.2 EU/dL (0.2-1.0) URINE NITRITE NEGATIVE (NEGATIVE) URINE BLOOD NEGATIVE (NEGATIVE) URINE LEUK ESTERASE TRACE (NEGATIVE) URINE RBC NONE SEEN rbc/hpf (0-1) URINE WBC 3-5 wbc/hpf (0-1) URINE EPITHELIAL CELLS 1-3 EPI/hpf (0-5) URINE BACTERIA FEW (1+) (NONE SEEN) URINE COMMENT CULTURE INDICATED URINE CULTURES ARE SET-UP BASED ON THE FOLLOWING CRITERIA:POSITIVE NITRITEPOSITIVE LEUKOCYTE ESTERASEGREATER THAN 10 WHITE BLOOD CELLSMODERATE (2+) OR GREATER BACTERIA Urine: (RODRÍGUEZ: 06/14/2016 15:45) ( [facility] [place] 16:01) Final results Test Result Flag Units (Reference) URINE NEGATIVE CBC w Diff: (RODRÍGUEZ: 06/14/2016 15:10) ( MsgRcvd 06/14/2016 15:18) Final results Test Result Flag Units (Reference) WHITE BLOOD COUNT 8.5 K/uL (4.5-11.5) RED BLOOD COUNT 3.70 L M/uL (4.00-5.20) HEMOGLOBIN 10.8 L gm/dL (12.0-16.0) HEMATOCRIT 32.4 L % (36.0-46.0) MEAN CELL VOLUME 87 fL (80-100) MEAN CORPUSCULAR HGB 29 pg (26-34) MEAN CORPUSCULAR HGB CONC 33 g/dL (31-37) RED CELL DISTRIBUTION WIDTH 12.9 % (11.6-14.8) PLATELET COUNT 341 K/uL (150-400) NEUTROPHIL % 73.1 % (50-75) LYMPH % 17.8 L % (25-40) MONO % 8.3 % (3-14) EOSINOPHIL % 0.5 % (0-4) BASOPHIL % 0.3 % (0-2) Urine Drug Screen: (RODRÍGUEZ: 06/14/2016 15:45) ( MsgRcvd 06/14/2016 16:21) Final results Test Result Flag Units (Reference) AMPHETAMINE/METHAMPHETAMINE NEGATIVE (NEGATIVE) BARBITURATE NEGATIVE (NEGATIVE) BENZODIAZEPINE NEGATIVE (NEGATIVE) CANNABINOID NEGATIVE (NEGATIVE) COCAINE NEGATIVE (NEGATIVE) ECSTASY NEGATIVE (NEGATIVE) METHADONE NEGATIVE (NEGATIVE) OPIATE NEGATIVE (NEGATIVE) The urine drug screen is a qualitative screening test fordrug overdose and abuse. All screen results should beconsidered as presumptive.Drugs screened for are as follows:BenzodiazepinesCocaineAmphetamines/MetamphetaminesTHC (Tetrahydrocannabinol)OpiatesBarbituratesEcstasyMethadonePositive results are unconfirmed. For confirmation, notifythe lab for the specimen to be sent to the reference lab.All confirmations must be performed by a differentmethodology.The ingestion of natural herbal and plant productscontaining Ephedra/Ephedra metabolites can produce in urineone or more substances capable of cross reacting withamphetamine/methamphetamine immunoassays. These testsprovide a preliminary result only. A more specificalternative chemical method must be used to obtain aconfirmed analytical result. Salicylate Level: (RODRÍGUEZ: 06/14/2016 15:10) ( MsgRcvd 06/14/2016 15:42) Final results Test Result Flag Units (Reference) SALICYLATE <2.8 L mg/dL (2.8-20) CMP: (RODRÍGUEZ: 06/14/2016 15:10) ( MsgRcvd 06/14/2016 15:48) Final results Test Result Flag Units (Reference) GLUCOSE 88 mg/dL (70-110) BUN 10 mg/dL (7-18) CREATININE 0.8 mg/dL (0.6-1.3) Estimated GFR >60 mL/min Estimated GFR- >60 mL/min Note: Persistent reduction over 3 months in eGFR<60 mL/min/1.73 m2 defines CKD. Patients with eGFR values>=60 mL/min/1.73 m2 may also have CKD if evidence ofpersistent proteinuria. Additional information may be foundat www.kidney.org. SODIUM 138 mmol/L (136-145) POTASSIUM 3.7 mmol/L (3.5-5.1) CHLORIDE 102 mmol/L (98-107) CARBON DIOXIDE 27 mmol/L (21-32) CALCIUM 9.2 mg/dL (8.5-10.1) TOTAL PROTEIN 7.8 g/dL (6.4-8.2) ALBUMIN 4.3 g/dL (3.3-5.0) BILIRUBIN, TOTAL 0.6 mg/dL (0.0-1.0) ALKALINE PHOSPHATASE 70 U/L (46-116) AST (SGOT) 77 H U/L (15-37) ALT (SGPT) 57 U/L (12-78) ETHYL ALCOHOL <3 L mg/dL (3-10) ACETAMINOPHEN < 2.0 L ug/mL (10-30) . PROGRESS AND PROCEDURES Course of Care: 16:53 06/14/16. pt aware of lab results and that we were calling pat pt is medically cleared for psych consult 1969. 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 pt resting quietly 21:39 06/14/16. report given to dr andino,whom will assume care around 2300 at end of my shift. Differential Diagnosis: Other possible considerations: substance abuse, psychosis, bipolar, schizophrenia. Above considerations are based on history and physical exam. Differential diagnosis was discussed with patient. CLINICAL IMPRESSION Chronic psychosis with delusions and hallucinations. (Electronically signed by Mellisa Hurtado, ArelyNAnitaP. 06/20/2016 13:05) Addenda for JUSTIN CALLAWAY VisitID: [id number] Date: 06/14/2016 06/15/2016 6:54 Patient evaluated and seen by midlevel. Patient to be transferred to [place]. Patient with psychosis. No further treatment or management needed throughout her stay here. Patient resting in bed and in no acute distress. Breakfast has been ordered. (Electronically signed by Anup Andino Dr. - 06/15/2016 6:54)
--- NOTE | 2016-06-15 06:09 | ED ORDER SUMMARY ---
..... Patient: JUSTIN CALLAWAY OrderSheet [facility] VisitID: [id number] [place] [address] 30y, F Registration Date/Time: 06/14/2016 ORDER SHEET Weight: 65.7 kg (stated) Allergies: None GENERAL ORDERS: CBC w Diff Urgent (14:44 06/14/2016 HBivens A.R.N.P.) (Ack 14:48 RKaruga) (20:48 AMcQuoid ER Tech1) CMP Urgent (14:44 06/14/2016 HBivens A.R.N.P.) (Ack 14:48 RKaruga) (20:48 AMcQuoid ER Tech1) UA-Culture if indicated Urgent (14:44 06/14/2016 HBivens A.R.N.P.) (Ack 14:48 RKaruga) (20:48 AMcQuoid ER Tech1) Urine Drug Screen Urgent (14:44 06/14/2016 HBivens A.R.N.P.) (Ack 14:48 RKaruga) (20:48 AMcQuoid ER Tech1) Urine Urgent (14:44 06/14/2016 HBivens A.R.N.P.) (Ack 14:48 RKaruga) (20:48 AMcQuoid ER Tech1) Ethyl Alcohol Urgent (14:44 06/14/2016 HBivens A.R.N.P.) (Ack 14:48 RKaruga) (20:48 AMcQuoid ER Tech1) Acetaminophen Level Urgent (14:44 06/14/2016 HBivens A.R.N.P.) (Ack 14:48 RKaruga) (20:48 AMcQuoid ER Tech1) Salicylate Level Urgent (14:44 06/14/2016 HBivens A.R.N.P.) (Ack 14:48 RKaruga) (20:48 AMcQuoid ER Tech1) MEDICATION ORDERS: IV FLUIDS: ORDER SHEET NOTES: [Electronically signed by Karen Thakur R.N. (08:11 06/15/2016)] [Electronically signed by Mellisa Hurtado A.R.N.P. (13:05 06/20/2016)] [Electronically locked/signed by Karen Thakur R.N. (08:11 06/15/2016)]
--- NOTE | 2016-06-15 06:09 | ED CLINICAL REPORT ---
Clinical Report - Physicians/Mid Levels [facility] [address] [place] [address] 06/14/2016 14:03 Patient: JUSTIN CALLAWAY Time Seen: 1434; initial patient contact, initial documentation, patient care assumed. Arrived- By private vehicle. Not in custody. Historian- patient and mother. HISTORY OF PRESENT ILLNESS Chief Complaint: ANXIOUS and DEPRESSED and AUDITORY and VISUAL HALLUCINATIONS. This started about 2 weeks ago. No situational problems or recent drug use or alcohol consumption. She has exhibited a behavior change. but was not found wandering. (pt tells me that the voices she hears are telling her scary things). She is non-compliant with medication. Has not been sleeping. She has had anxiety, delusions and hallucinations. Has been depressed. No suicidal thoughts or self-injury inflicted. The symptoms are described as moderate. No injury is present. Similar symptoms previously: ( txed here on 05/12 for same thing, mom says she was admitted to [facility], and since she was dc, she is noncompliant with meds). Recent medical care: The patient was seen recently by a health care provider. REVIEW OF SYSTEMS No chest pain, abdominal pain, vomiting, diarrhea or fever. No difficulty breathing. All systems otherwise negative, except as recorded above. PAST HISTORY See nurses notes. ( PROBLEMS: Psychosis. Depression. --14:30 Lara Ndiaye R.N. ADDITIONAL SURGERIES: no known surgeries.). SOCIAL HISTORY Never smoker. No alcohol use or drug use. Has social support. Has place to stay. FAMILY HISTORY Negative. ADDITIONAL NOTES The nursing notes have been reviewed with agreement regarding the chief complaint, HPI, ROS, PMH and patient medications and allergies. PHYSICAL EXAM Vital Signs: 06/14/2016 14:26 BP: 131/87. HR: 85. RR: 18. O2 saturation: 99%. Temp: 98.5 F. Have been reviewed as normal and appear to be correct. Appearance: Alert. No acute distress. Appearance is normal. Patient is. Appears detached. Eyes: Pupils equal, round and reactive to light. Neck: Normal inspection. Neck supple. CVS: Normal heart rate and rhythm. Heart sounds normal. Respiratory: Breath sounds normal. Chest nontender. Abdomen: Soft and nontender. Back: No tenderness. Skin: Skin warm and dry. Normal skin color. Normal skin turgor. Extremities: Extremities exhibit normal ROM. No lower extremity edema. Psych / Neuro: Oriented X 3. Abnormal mood and affect. Flat affect. Speech normal. Cognition normal. Thought content not normal. Thought process not normal. Appears to have auditory and visual hallucinations and delusions. Denies suicidal thoughts. Patient does not express homicidal thoughts. Insight and judgement not normal. The patient does not appear to understand hers illness. She seems unconcerned about hers current condition. Cranial nerves normal (as tested). No cerebellar findings. No motor deficit. No sensory deficit. LABS, X-RAYS, AND EKG Laboratory Tests: UA-Culture if indicated: (RODRÍGUEZ: 06/14/2016 15:45) ( [facility] [place] Final results Test Result Flag Units (Reference) URINE COLOR YELLOW URINE APPEARANCE HAZY URINE GLUCOSE NEGATIVE (NEGATIVE) URINE BILIRUBIN NEGATIVE (NEGATIVE) URINE KETONE TRACE (NEGATIVE) URINE SPECIFIC GRAVITY <= 1.005 L (1.010-1.030) URINE PH 6.0 (5.0-8.0) URINE PROTEIN NEGATIVE (NEGATIVE) URINE UROBILINOGEN 0.2 EU/dL (0.2-1.0) URINE NITRITE NEGATIVE (NEGATIVE) URINE BLOOD NEGATIVE (NEGATIVE) URINE LEUK ESTERASE TRACE (NEGATIVE) URINE RBC NONE SEEN rbc/hpf (0-1) URINE WBC 3-5 wbc/hpf (0-1) URINE EPITHELIAL CELLS 1-3 EPI/hpf (0-5) URINE BACTERIA FEW (1+) (NONE SEEN) URINE COMMENT CULTURE INDICATED URINE CULTURES ARE SET-UP BASED ON THE FOLLOWING CRITERIA:POSITIVE NITRITEPOSITIVE LEUKOCYTE ESTERASEGREATER THAN 10 WHITE BLOOD CELLSMODERATE (2+) OR GREATER BACTERIA Urine: (RODRÍGUEZ: 06/14/2016 15:45) ( [facility] [place]) Final results Test Result Flag Units (Reference) URINE NEGATIVE CBC w Diff: (RODRÍGUEZ: 06/14/2016 15:10) ( MsgRcvd 06/14/2016 15:18) Final results Test Result Flag Units (Reference) WHITE BLOOD COUNT 8.5 K/uL (4.5-11.5) RED BLOOD COUNT 3.70 L M/uL (4.00-5.20) HEMOGLOBIN 10.8 L gm/dL (12.0-16.0) HEMATOCRIT 32.4 L % (36.0-46.0) MEAN CELL VOLUME 87 fL (80-100) MEAN CORPUSCULAR HGB 29 pg (26-34) MEAN CORPUSCULAR HGB CONC 33 g/dL (31-37) RED CELL DISTRIBUTION WIDTH 12.9 % (11.6-14.8) PLATELET COUNT 341 K/uL (150-400) NEUTROPHIL % 73.1 % (50-75) LYMPH % 17.8 L % (25-40) MONO % 8.3 % (3-14) EOSINOPHIL % 0.5 % (0-4) BASOPHIL % 0.3 % (0-2) Urine Drug Screen: (RODRÍGUEZ: 06/14/2016 15:45) ( MsgRcvd 06/14/2016 16:21) Final results Test Result Flag Units (Reference) AMPHETAMINE/METHAMPHETAMINE NEGATIVE (NEGATIVE) BARBITURATE NEGATIVE (NEGATIVE) BENZODIAZEPINE NEGATIVE (NEGATIVE) CANNABINOID NEGATIVE (NEGATIVE) COCAINE NEGATIVE (NEGATIVE) ECSTASY NEGATIVE (NEGATIVE) METHADONE NEGATIVE (NEGATIVE) OPIATE NEGATIVE (NEGATIVE) The urine drug screen is a qualitative screening test fordrug overdose and abuse. All screen results should beconsidered as presumptive.Drugs screened for are as follows:BenzodiazepinesCocaineAmphetamines/MetamphetaminesTHC (Tetrahydrocannabinol)OpiatesBarbituratesEcstasyMethadonePositive results are unconfirmed. For confirmation, notifythe lab for the specimen to be sent to the reference lab.All confirmations must be performed by a differentmethodology.The ingestion of natural herbal and plant productscontaining Ephedra/Ephedra metabolites can produce in urineone or more substances capable of cross reacting withamphetamine/methamphetamine immunoassays. These testsprovide a preliminary result only. A more specificalternative chemical method must be used to obtain aconfirmed analytical result. Salicylate Level: (RODRÍGUEZ: 06/14/2016 15:10) ( MsgRcvd 06/14/2016 15:42) Final results Test Result Flag Units (Reference) SALICYLATE <2.8 L mg/dL (2.8-20) CMP: (RODRÍGUEZ: 06/14/2016 15:10) ( MsgRcvd 06/14/2016 15:48) Final results Test Result Flag Units (Reference) GLUCOSE 88 mg/dL (70-110) BUN 10 mg/dL (7-18) CREATININE 0.8 mg/dL (0.6-1.3) Estimated GFR >60 mL/min Estimated GFR- >60 mL/min Note: Persistent reduction over 3 months in eGFR<60 mL/min/1.73 m2 defines CKD. Patients with eGFR values>=60 mL/min/1.73 m2 may also have CKD if evidence ofpersistent proteinuria. Additional information may be foundat www.kidney.org. SODIUM 138 mmol/L (136-145) POTASSIUM 3.7 mmol/L (3.5-5.1) CHLORIDE 102 mmol/L (98-107) CARBON DIOXIDE 27 mmol/L (21-32) CALCIUM 9.2 mg/dL (8.5-10.1) TOTAL PROTEIN 7.8 g/dL (6.4-8.2) ALBUMIN 4.3 g/dL (3.3-5.0) BILIRUBIN, TOTAL 0.6 mg/dL (0.0-1.0) ALKALINE PHOSPHATASE 70 U/L (46-116) AST (SGOT) 77 H U/L (15-37) ALT (SGPT) 57 U/L (12-78) ETHYL ALCOHOL <3 L mg/dL (3-10) ACETAMINOPHEN < 2.0 L ug/mL (10-30) . PROGRESS AND PROCEDURES Course of Care: 16:53 06/14/16. pt aware of lab results and that we were calling pat pt is medically cleared for psych consult [id number]. 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 pt resting quietly 21:39 06/14/16. report given to dr andino,whom will assume care around 2300 at end of my shift. Differential Diagnosis: Other possible considerations: substance abuse, psychosis, bipolar, schizophrenia. Above considerations are based on history and physical exam. Differential diagnosis was discussed with patient. CLINICAL IMPRESSION Chronic psychosis with delusions and hallucinations. (Electronically signed by Mellisa Hurtado, ArelyNAnitaP. 06/20/2016 13:05) Addenda for JUSTIN CALLAWAY VisitID: [id number] Date: 06/14/2016 06/15/2016 6:54 Patient evaluated and seen by midlevel. Patient to be transferred to [facility]. Patient with psychosis. No further treatment or management needed throughout her stay here. Patient resting in bed and in no acute distress. Breakfast has been ordered. (Electronically signed by Anup Andino Dr. - 06/15/2016 6:54)
--- NOTE | 2016-06-20 13:06 | ED MED RECONCILIATION SUMMARY ---
Patient: JUSTIN CALLAWAY Medication Reconciliation Report [facility] VisitID: [id number] [address] [place] [address] 30y, F Registration Date/Time: 06/14/2016 Weight: 65.7 kg Height/Length: 69 in. BMI: 21.4 ALLERGIES: None The patient's Home Medications are listed below: THE FOLLOWING MEDICATIONS NEED TO BE RECONCILED: Citalopram Hydrobromide Oral HydrOXYzine Pamoate Oral OLANZapine Oral TraZODone HCl Oral The source(s) of the original Home Medication information: Not obtained. The following Medications were given to the patient in the Emergency Department: None. The following Medications were prescribed to the patient: None.
--- NOTE | 2016-06-20 13:06 | ED DISCHARGE INSTRUCTIONS ---
Patient: JUSTIN CALLAWAY General Instructions [facility] VisitID: [id number] [address] [place] [address] 30y, F Registration Date/Time: 06/14/2016 Chronic psychosis with delusions and hallucinations. (Electronically signed by Mellisa Hurtado A.R.N.P. 06/20/2016 13:05)
--- NOTE | 2016-06-20 13:06 | ED MAR SUMMARY ---
..... Medication Administration Record [facility] [address] [place], [place] [id number] Patient: JUSTIN CALLAWAY Visit ID: [id number] 30y, F Weight: 65.7 kg Height/Length: 69 in BMI: 21.4 ALLERGIES: None
--- NOTE | 2016-06-20 13:06 | ED MED RECONCILIATION SUMMARY ---
Patient: JUSTIN CALLAWAY Medication Reconciliation Report [facility] VisitID: [id number] [address] [place] [address] 30y, F Registration Date/Time: 06/14/2016 Weight: 65.7 kg Height/Length: 69 in. BMI: 21.4 ALLERGIES: None The patient's Home Medications are listed below: THE FOLLOWING MEDICATIONS NEED TO BE RECONCILED: Citalopram Hydrobromide Oral HydrOXYzine Pamoate Oral OLANZapine Oral TraZODone HCl Oral The source(s) of the original Home Medication information: Not obtained. The following Medications were given to the patient in the Emergency Department: None. The following Medications were prescribed to the patient: None.
--- NOTE | 2016-06-20 13:06 | ED DISCHARGE INSTRUCTIONS ---
Patient: JUSTIN CALLAWAY General Instructions [facility] VisitID: [id number] [address] [place] [address] 30y, F Registration Date/Time: 06/14/2016 Chronic psychosis with delusions and hallucinations. (Electronically signed by Mellisa Hurtado A.R.N.P. 06/20/2016 13:05)
--- NOTE | 2016-06-20 13:06 | ED MAR SUMMARY ---
..... Medication Administration Record [facility] [address], [place] [id number] Patient: JUSTIN CALLAWAY Visit ID: [id number] 30y, F Weight: 65.7 kg Height/Length: 69 in BMI: 21.4 ALLERGIES: None
== END 2016-06-15 08:01 ==
LOC: ED SRH 14:02
DX: F22 Delusional disorders (principal); F29 Unspecified psychosis not due to a substance or known physiological condition; R44.3 Hallucinations, unspecified
CPT/HCPCS: 90004; 90074; 90100; 90469; 92010; 92760; 92761; 92762; 92763; 92764; 92765; 92766; 92767; 92780; 93070; 95059; 97000